=== PATIENT | female | born 1980 ===

== ENCOUNTER → 2023-11-07 | Outpatient (CLI) | payer OTHER | LOC: LAB 17:28 → LAB SHORT 17:28 | DX: Z34.93 Encounter for supervision of normal pregnancy, unspecified, third trimester (principal); Z3A.36 36 weeks gestation of pregnancy | CPT/HCPCS: 87081; 87150 ==

== ENCOUNTER 2024-04-23 06:37 | Emergency (ER) | payer OTHER ==
[~2024-04-23] VITALS: Ht 160 cm; Wt 61.2 kg
[2024-04-23] MEDS ORDERED: Ondansetron HCl 2 MG / ML 2ML Vial IV PRN (06:55)
[2024-04-23] MEDS ORDERED: NS 1,000 ML IV ONE (07:03)
[2024-04-23 07:40] LABS: Albumin/Globulin Ratio 0.7 (0.8-1.8); Bilirubin, Total 1.1 mg/dL (0.1-1.0); Bun/Creatinine Ratio 25.1 (12.0-20.0); Calcium, Blood 8.3 mg/dL (8.5-10.1); Creatinine, Blood 0.92 mg/dL (0.40-1.00); Globulin, Blood 4.2 g/dL (2.2-4.0); Potassium, Blood 3.2 mmol/L (3.5-5.5); Total Protein, Blood 7.2 g/dL (6.4-8.2)
[2024-04-23] MEDS ORDERED: NS 1,000 ML IV SCH ×2 (07:50→09:25)
[2024-04-23] MEDS ORDERED: Ketorolac Tromethamine 15mg Vial IV ONE (07:55)
[2024-04-23 08:02] LABS: Hematocrit 35.1 % (33.0-51.0); Hemoglobin 12.3 g/dL (11.5-16.0); Mean Corpuscular HGB 31.1 pg (26.0-34.0); Mean Corpuscular Volume 89 fL (80-100); Mean Platelet Volume 9.8 fL (9.1-12.4); Platelet Count 77 K/mm3 (150-400); RDW Coefficient Variation 11.6 % (11.7-14.2); RDW Standard Deviation 37.4 fL (35.1-46.3); Red Blood Cell Count 3.95 M/mm3 (3.80-5.20)
[2024-04-23 08:23] LABS: BAND PERCENT MAN 31 % (0-8); BASOPHILS PERCENT MAN 0 % (0-2); EOSINOPHILS PERCENT MAN 0 % (0-6); LYMPHOCYTES ABSOLUTE MAN 0.24 K/mm3 (0.84-5.20); LYMPHOCYTES PERCENT MAN 3 % (21-46); METAMYELOCYTE ABSOLUTE MAN 0.08 K/mm3 (0.00-0.00); METAMYELOCYTE PERCENT MAN 1 % (0-0); MONOCYTES PERCENT MAN 5 % (4-13); NEUTROPHILS ABSOLUTE MAN 7.37 K/mm3 (1.96-9.15); SEG NEUTROPHILS PERCENT MAN 60 % (41-73); TOTAL CELLS COUNTED 100
[2024-04-23] MEDS ORDERED: ONDA4ODT MM (10:34)
[2024-04-23 10:45] VITALS: BP 97/66
== END 2024-04-23 11:00 | disposition home or self-care (01) ==
LOC: ER 06:37
PROVIDERS: Student in an Organized Health Care Education/Training Program
DX: J10.1 Influenza due to other identified influenza virus with other respiratory manifestations (principal); E86.1 Hypovolemia
CPT/HCPCS: 80053; 83690; 85025; 86900; 86901; 96361; 96374; 96375; 99284-25; J1885; J2405; J7030

== ENCOUNTER 2024-04-25 22:55 | Inpatient (IN) | payer OTHER ==
[~2024-04-25] VITALS: Ht 162.6 cm; Wt 69.0 kg
[~2024-04-25 22:55] MED LIST: ONDA4ODT MM
[2024-04-25] MEDS ORDERED: NS 1,000 ML IV SCH ×2 (23:25→23:40)
[2024-04-25] MEDS ORDERED: NS 1,000 ML IV ONE (23:36)
[2024-04-25] MEDS ORDERED: CefTRIAXone Sodium 2,000 MG in NS 100 ML IV ONE (23:40)
[2024-04-25] MEDS ORDERED: Clindamycin 900mg in D5W 50ML 50 ML IV ONE (23:40)
[2024-04-25 23:45] LABS: Hemoglobin 14.4 g/dL (11.5-16.0); Mean Corpuscular HGB 30.7 pg (26.0-34.0); Mean Corpuscular HGB Conc 35.1 g/dL (31.5-36.5); Mean Corpuscular Volume 87 fL (80-100); Mean Platelet Volume 10.5 fL (9.1-12.4); Platelet Count 142 K/mm3 (150-400); RDW Standard Deviation 38.8 fL (35.1-46.3); Red Blood Cell Count 4.69 M/mm3 (3.80-5.20); White Blood Cell Count 3.24 K/mm3 (4.00-11.30)
[2024-04-25] MEDS ORDERED: Azithromycin 500 MG in NS 250 ML IV ONE (23:45)
[2024-04-25 23:49] LABS: PCO2 Arterial 36.8 mmHg (35-45); pH Blood Arterial 7.47 (7.35-7.45)
[2024-04-25] MEDS ORDERED: CALCIUM GLUC IN NACL, ISO-OSM 100 ML IV ONE (23:55)
[2024-04-26] VITALS (71 sets, daily range): BP systolic 46–188; BP diastolic 12–154
[2024-04-26] LABS: International Normalized Ratio 1.12; Prothrombin Time Results 11.9 Sec (9.7-11.5)
[2024-04-26 00:01] LABS: Magnesium, Blood 1.5 mg/dL (1.6-2.4)
[2024-04-26 00:02] LABS: Albumin, Blood 2.5 g/dL (3.4-5.0); Albumin/Globulin Ratio 0.6 (0.8-1.8); Bilirubin, Total 1.3 mg/dL (0.1-1.0); Bun/Creatinine Ratio 15.6 (12.0-20.0); Calcium, Blood 8.8 mg/dL (8.5-10.1); Creatinine, Blood 0.83 mg/dL (0.40-1.00); Globulin, Blood 4.1 g/dL (2.2-4.0); Potassium, Blood 3.6 mmol/L (3.5-5.5); Total Protein, Blood 6.6 g/dL (6.4-8.2)
[2024-04-26] MEDS ORDERED: Albuterol 2.5 MG/3 ML VIAL INH SCH (00:05)
[2024-04-26 00:15] LABS: BAND PERCENT MAN 33 % (0-8); BASOPHILS PERCENT MAN 0 % (0-2); EOSINOPHILS ABSOLUTE MAN 0.03 K/mm3 (0.00-0.68); EOSINOPHILS PERCENT MAN 1 % (0-6); LYMPHOCYTES ABSOLUTE MAN 0.29 K/mm3 (0.84-5.20); LYMPHOCYTES PERCENT MAN 9 % (21-46); METAMYELOCYTE ABSOLUTE MAN 0.03 K/mm3 (0.00-0.00); METAMYELOCYTE PERCENT MAN 1 % (0-0); MONOCYTES ABSOLUTE MAN 0.35 K/mm3 (0.16-1.47); MONOCYTES PERCENT MAN 11 % (4-13); MYELOCYTE ABSOLUTE MAN 0.03 K/mm3 (0.00-0.00); MYELOCYTE PERCENT MAN 1 % (0-0); NEUTROPHILS ABSOLUTE MAN 2.49 K/mm3 (1.96-9.15); SEG NEUTROPHILS PERCENT MAN 44 % (41-73); TOTAL CELLS COUNTED 100
[2024-04-26] MEDS ORDERED: Vancomycin HCL 1,750 MG in NS 500 ML IV ONE (00:30)
[2024-04-26] MEDS ORDERED: NS 1,000 ML IV ONE ×5 (00:33→12:35)
[2024-04-26] MEDS ORDERED: NS 1,000 ML IV SCH ×2 (00:40→02:00)
[2024-04-26] MEDS ORDERED: Ketorolac Tromethamine 30mg Vial IV ONE ×2 (00:55→04:25)
[2024-04-26] MEDS ORDERED: Magnesium Sulf 2 GM/Water 50ML 50 ML IV ONE (00:55)
[2024-04-26] MEDS ORDERED: Ondansetron HCl 2 MG / ML 2ML Vial IV PRN (01:15)
[2024-04-26] MEDS ORDERED: FLU VACC TS2024-25(6MOS UP)/PF 45 MCG/0.5 ML SYRINGE IM ONE (01:15)
[2024-04-26] MEDS ORDERED: Vasopressin 20 UNITS in NS 100 ML IV SCH ×2 (01:35→03:30)
[2024-04-26 01:39] LABS: CORONAVIRUS COVID-19 AG Positive (NEGATIVE); INFLUENZA A AG Positive (NEGATIVE); INFLUENZA B AG Negative (NEGATIVE)
[2024-04-26] MEDS ORDERED: Oseltamivir Phosphate 75 MG Cap PO ONE (01:40)
[2024-04-26] MEDS ORDERED: Hydrocortisone Sod Succinate 100 MG Vial IV STA (01:40)
[2024-04-26] MEDS ORDERED: Dexamethasone Sod Phos 10 MG/ML 1ML VIAL IV ONE (01:45)
[2024-04-26] MEDS ORDERED: Phenylephrine HCl 20 MG in NS 250 ML IV SCH ×2 (01:45→12:30)
[2024-04-26] MEDS ORDERED: Hydrocortisone Sod Succinate 100 MG Vial IV ONE ×2 (01:45→04:30)
[2024-04-26] MEDS ORDERED: Albumin (Human) 25gm/100ml 100 ML IV SCH ×2 (01:45→10:30)
[2024-04-26] MEDS ORDERED: Remdesivir (EUA) 200 MG in NS 250 ML IV ONE (02:20)
[2024-04-26] MEDS ORDERED: Phenylephrine HCl in 0.9% NaCl 250 ML IV SCH ×2 (02:25→13:15)
[2024-04-26 05:11] LABS: Hematocrit 33.8 % (33.0-51.0); Hemoglobin 11.9 g/dL (11.5-16.0); Mean Corpuscular HGB 31.5 pg (26.0-34.0); Mean Corpuscular HGB Conc 35.2 g/dL (31.5-36.5); Mean Corpuscular Volume 89 fL (80-100); Mean Platelet Volume 10.4 fL (9.1-12.4); Platelet Count 213 K/mm3 (150-400); RDW Coefficient Variation 12.3 % (11.7-14.2); RDW Standard Deviation 40.5 fL (35.1-46.3); Red Blood Cell Count 3.78 M/mm3 (3.80-5.20); White Blood Cell Count 8.61 K/mm3 (4.00-11.30)
[2024-04-26 05:34] LABS: Bun/Creatinine Ratio 16.7 (12.0-20.0); Creatinine, Blood 0.72 mg/dL (0.40-1.00); Potassium, Blood 3.2 mmol/L (3.5-5.5)
[2024-04-26] MEDS ORDERED: Acetaminophen 160MG / 5ML 10.15 UDC PO PRN (05:40)
[2024-04-26] MEDS ORDERED: Acetaminophen 500 MG Tab PO ONE (05:40)
[2024-04-26] MEDS ORDERED: Pantoprazole Sodium 40 MG Injection IV SCH (06:00)
[2024-04-26] MEDS ORDERED: Potassium Chloride 40 MEQ in NS 250 ML IV ONE (06:15)
[2024-04-26] MEDS ORDERED: Ketamine HCl 100 MG / ML 5ML Vial IV ONE ×2 (06:20→12:30)
[2024-04-26] MEDS ORDERED: dexmedeTOMIDine 100 ML IV SCH ×2 (06:20→06:25)
[2024-04-26] MEDS ORDERED: SuccINYLCHOLINE Chloride 20 MG/ML 10ML Injection IV ONE (06:20)
[2024-04-26] MEDS ORDERED: FentaNYL Citrate 50 MCG/ML 2 ML Injection IV ONE (08:35)
[2024-04-26] MEDS ORDERED: FentaNYL Citrate 50 MCG/ML 2 ML Injection ONE (08:35)
[2024-04-26] MEDS ORDERED: Enoxaparin 40 MG/0.4 ML SYR SC SCH (09:00)
--- NOTE | 2024-04-26 09:00 | NUR ---
ADMISSION: Pt arrived to ICU 13 at 0856. This RN assisted in ED to stabilize pt before transport to ICU. Upon arrival, pt's BP continues to be very low and labile. Levophed at 60 mcg/min with provider instruction with neosynephrine at 200 mcg/min. See new orders from Dr Alvarado and flowsheets for titrations. Pt is awake and alert, intermittantly nodding "yes" or "no" on ventilator with precedex running at 0.7 mcg/kg/min via right IJ central line. She is moving all exremities with bilateral wrist restraints in place. Heart rate is sinus tachycardia on monitor with peripheral pulses faint with generalized mottling throughout. Lung sounds coarse. Abdomen soft and nontender with OG in place to LIS. Temp prob james in place from ED with small amount of yellow urine. Peripheral IV removed from left hand and right upper arm as they are no longer patent. Right hand IV flushing. All lumens from right IJ flushing with blood return. Palliative care and manager of broadcast content karen called in. Spouse, YANELIS, outside room.
[2024-04-26] MEDS ORDERED: Phenylephrine HCl 100 MCG/ML-NS 10MLSYR (1MG/10ML) IV ONE ×2 (09:02→12:30)
[2024-04-26] MEDS ORDERED: FentaNYL Citrate 50 MCG/ML 2 ML Injection IV PRN (09:20)
[2024-04-26] MEDS ORDERED: fentaNYL citrate 1,000 MCG in NS 80 ML IV SCH (09:20)
[2024-04-26] MEDS ORDERED: NS 500 ML IV ONE (10:33)
--- NOTE | 2024-04-26 10:33 | NUR ---
Pastoral care visitation conducted. Patient alert with family at bedside providing consolation. Family report the events leading to the patient's hospitalization and current struggle. Patient has a strong family network as well as a stephanie community who provide good support. Pastoral presence extended along with normalization of felt expression for the family. Prayer was requested and readily recieved. Assurance of prospective pastoral support as needed.
[2024-04-26] MEDS ORDERED: Lidocaine HCl/Pf 1% 5 ML VIAL ONE (10:35)
[2024-04-26] MEDS ORDERED: Lidocaine HCl/Pf 1% 5 ML VIAL XX ONE (10:40)
[2024-04-26] MEDS ORDERED: Hydrocortisone Sod Succinate 100 MG Vial IV SCH (11:00)
[2024-04-26] MEDS ORDERED: Sodium Chloride 0.45% 1,000 ML IV ONE (11:00)
[2024-04-26] MEDS ORDERED: Ketamine HCL 1,000 MG in NS 100 ML IV SCH (11:35)
[2024-04-26] MEDS ORDERED: HYDROmorphone HCl/Pf 1MG SYR IV PRN (11:35)
--- NOTE | 2024-04-26 12:07 | NUR ---
CODE: Art line unsuccessfully attmpted by Dr Alvarado. Shortly after, pt became unresponsive, heartrate began to trend down and EtCO2 dropped to ten; CPR started. See code documentation in chart.
[2024-04-26] MEDS ORDERED: PHENYLEPHRINE HCL IV SCH (12:25)
[2024-04-26] MEDS ORDERED: NS IV SCH (12:25)
[2024-04-26] MEDS ORDERED: Sodium Bicarb 8.4% Inj 150 MEQ in Dextrose 5% 1,000 ML IV SCH (12:30)
[2024-04-26] MEDS ORDERED: Midazolam HCl 1MG / ML 2ML Vial IV ONE (12:30)
[2024-04-26] MEDS ORDERED: SuccINYLCHOLINE Chloride 100 MG/5 ML 5MLSYR IV ONE (12:30)
[2024-04-26] MEDS ORDERED: Propofol 10mg/ml 20 ml Vial (Procedural) IV ONE (12:30)
[2024-04-26] MEDS ORDERED: DOBUtamine 250 MG/D5W 250 ML 250 ML IV SCH (12:45)
[2024-04-26 13:00] LABS: Hematocrit 19.8 % (33.0-51.0); Hemoglobin 6.2 g/dL (11.5-16.0)
[2024-04-26] MEDS ORDERED: Vancomycin HCL 1,000 MG in NS 250 ML IV SCH (13:00)
--- NOTE | 2024-04-26 13:15 | NUR ---
BLOCK CHARTING: See code documentations in chart. Additional medications given after ROSCs as follows: 12:25PM bicarb amp push per Dr Alvarado verbal order at bedside 12:38PM bicarb amp push per Dr Alvarado verbal order at bedside 12:47PM 1g calcium IV push per Dr Alvarado verbal order at bedside 12:58PM amp epi push per Dr Alvarado verbal order at bedside 13:00PM 1g calcium IV push per Dr Alvarado verbal order at bedside 13:03PM doputamine drip started at 5mcg/kg/min per Dr Alvarado verbal order at bedside 13:09PM amp epi push per Dr Alvarado verbal order at bedside 13:14PM amp epi push per Dr Alvarado verbal order at bedside
--- NOTE | 2024-04-26 13:15 | NUR ---
BLOCK CHARTING: Asystole code; See code documentation in chart. ROSC obtained at 12:22. 12:24PM vasopressin titrated up to 0.08 units/min per Dr Alvarado verbal order at bedside. 12:25PM bicarb amp push per Dr Alvarado verbal order at bedside 12:38PM bicarb amp push per Dr Alvarado verbal order at bedside 12:58PM amp epi push per Dr Alvarado verbal order at bedside 13:00PM 1g calcium push per Dr Alvarado verbal order at bedside 13:03PM doputamine drip started at 5mcg/kg/min per Dr Alvarado verbal order at bedside 13:09PM amp epi push per Dr Alvarado verbal order at bedside 13:14PM amp epi push per Dr Alvarado verbal order at bedside
[2024-04-26 13:16] LABS: Hemoglobin 6.9 g/dL (11.5-16.0)
[2024-04-26 13:38] LABS: Albumin, Blood 1.3 g/dL (3.4-5.0); Anion Gap 26 mmol/L (3-11); Blood Urea Nitrogen 14 mg/dL (8-24); Bun/Creatinine Ratio 12.1 (12.0-20.0); CO2, Blood 15 mmol/L (21-32); Calcium, Blood 6.4 mg/dL (8.5-10.1); Chloride, Blood 107 mmol/L (98-108); Creatinine, Blood 1.16 mg/dL (0.40-1.00); Glomerular Filtration Rate 59 (60-); Glucose, Blood 396 mg/dL (70-99); Sodium, Blood 143 mmol/L (136-145)
[2024-04-26 13:39] LABS: Phosphorus, Blood 8.5 mg/dL (2.5-4.9)
--- NOTE | 2024-04-26 13:55 | NUR ---
SUMMARY: TOD called at 1353 by this RN and Dr Alvarado with spouse and spiritual care at bedside. A total of four codes where performed while Indu was in the ICU. After ROSC obtained each time, heart rate and EtCO2 would slowly trend down before reinitiating CPR.
--- NOTE | 2024-04-26 14:47 | NUR ---
Pastoral care provided. Condolences, prayer and deepest sympathy extended to familiy upon the patient's expiration. Family do have good catholic support and other family for assistance. Bereavement resources explained to family for needs of grief support.
[2024-04-26] MEDS ORDERED: Dexamethasone Sod Phos 10 MG/ML 1ML VIAL IV SCH (15:00)
--- NOTE | 2024-04-26 16:00 | NUR ---
CALLED TO PROVIDE SUPPORT. PATIENT IS INTUBATED AND ON PRESSORS. EMOTIONAL SUPPORT FOR . CODE CALLED, ARRIVED TO ASSIST. LONG CODE, CPR INITATED MULTIPUL TIMES. PATIENTS TEARFUL. DECISION WAS MADE TO NOT BEGIN CPR AGAIN IF HER HEART STOPS. PATIENT PASSED.
[2024-04-26] MEDS ORDERED: EPINEPhrine HCl 0.1 MG/ML 10ML SYR IV ONE (16:12)
[2024-04-26] MEDS ORDERED: Calcium Chloride 10% 10 ML SYR IV ONE (16:12)
[2024-04-26] MEDS ORDERED: Sodium Bicarb 8.4% 50 mEq Syringe IV ONE (16:12)
[2024-04-26] MEDS ORDERED: EpiNEPhrine 1 MG/1 ML 1ML Vial IV ONE (16:12)
[2024-04-26] MEDS ORDERED: CefTRIAXone Sodium 1,000 MG in NS 100 ML IV SCH (21:00)
[2024-04-27] MEDS ORDERED: Remdesivir (EUA) 100 MG in NS 250 ML IV SCH (12:00)
== END 2024-04-26 13:53 | DRG 871 ==
LOC: ER 22:55 → ERHOLD 04-26 02:03 → ICUE 04-26 07:53
PROVIDERS: Family Medicine; Internal Medicine Critical Care Medicine; Student in an Organized Health Care Education/Training Program; ADMIT Internal Medicine
PROC: 4A033R1 Measurement of Arterial Saturation, Peripheral, Percutaneous Approach (ICD-10-PCS; principal; 2024-04-25)
PROC: 3E03329 Introduction of Other Anti-infective into Peripheral Vein, Percutaneous Approach (ICD-10-PCS; 2024-04-25)
PROC: 3E033XZ Introduction of Vasopressor into Peripheral Vein, Percutaneous Approach (ICD-10-PCS; 2024-04-26)
PROC: 302 Administration, Circulatory, Transfusion (ICD-10-PCS; 2024-04-26)
PROC: XW033E5 Introduction of Remdesivir Anti-infective into Peripheral Vein, Percutaneous Approach, New Technology Group 5 (ICD-10-PCS; 2024-04-26)
PROC: 5A12012 Performance of Cardiac Output, Single, Manual (ICD-10-PCS; 2024-04-26)
PROC: 5A0935A Assistance with Respiratory Ventilation, Less than 24 Consecutive Hours, High Flow/Velocity Cannula (ICD-10-PCS; 2024-04-26)
PROC: 5A09357 Assistance with Respiratory Ventilation, Less than 24 Consecutive Hours, Continuous Positive Airway Pressure (ICD-10-PCS; 2024-04-26)
PROC: 0BH17EZ Insertion of Endotracheal Airway into Trachea, Via Natural or Artificial Opening (ICD-10-PCS; 2024-04-26)
PROC: 5A1935Z Respiratory Ventilation, Less than 24 Consecutive Hours (ICD-10-PCS; 2024-04-26)
PROC: 02HV33Z Insertion of Infusion Device into Superior Vena Cava, Percutaneous Approach (ICD-10-PCS; 2024-04-26)
PROC: B548ZZA Ultrasonography of Superior Vena Cava, Guidance (ICD-10-PCS; 2024-04-26)
PROC: 0T9B70Z Drainage of Bladder with Drainage Device, Via Natural or Artificial Opening (ICD-10-PCS; 2024-04-26)
DX: A41.89 Other specified sepsis (principal); J12.82 Pneumonia due to coronavirus disease 2019; J96.01 Acute respiratory failure with hypoxia; R65.21 Severe sepsis with septic shock; U07.1 COVID-19; E87.20 Acidosis, unspecified; E87.1 Hypo-osmolality and hyponatremia; Z28.21 Immunization not carried out because of patient refusal; I46.9 Cardiac arrest, cause unspecified; E83.51 Hypocalcemia; E83.42 Hypomagnesemia; Z90.49 Acquired absence of other specified parts of digestive tract; J10.1 Influenza due to other identified influenza virus with other respiratory manifestations; D70.3 Neutropenia due to infection
CPT/HCPCS: 31500; 36415; 36600; 51702; 71045; 80048; 80053; 80069; 82330; 82803; 82947; 83605; 83690; 83735; 83880; 84100; 84145; 85014; 85018; 85025; 85027; 85610; 85730; 86900; 86901; 87040; 87070; 87147; 87205; 87428-QW; 92950; 93005; 93010; 93308; 94002; 94644; 94660; 94664; 96361; 96365; 96368; 96374; 96375; 96375-59; 99284-25; 99285-25; A9270; J0171; J0248; J0330; J0456; J0612; J0696; J1720; J1885; J2003; J2250; J2371; J2405; J2470; J2704; J3010; J3370; J3475; J3480; J7030; J7040; J7050; J7060; J7070; P9047